=== PATIENT | female | born 2000 | race Caucasian/White ===

== ENCOUNTER 2022-05-22 10:40 | Emergency (ER) | payer OTHER ==
[~2022-05-22] VITALS: Ht 180.3 cm; Wt 108.9 kg
[~2022-05-22 10:40] MED LIST: KEFLEX500 MG PO; NAPROXEN250 MG PO; PREDNISONE20 MG PO
[2022-05-22] MEDS ORDERED: VENTOLIN HFA18 GM (11:06)
[2022-05-22] MEDS ORDERED: SERTRALINE HCL50 MG (11:06)
[2022-05-22] MEDS ORDERED: VITAMIN D-40010 MCG (11:07)
[2022-05-22] MEDS ORDERED: BUPROPION XL150 MG PO (11:09)
[2022-05-22 11:56] VITALS: BP 144/71
== END 2022-05-22 11:56 | disposition home or self-care (01) ==
LOC: ED 10:40
DX: O9A.212 Injury, poisoning and certain other consequences of external causes complicating pregnancy, second trimester (principal); S39.012A Strain of muscle, fascia and tendon of lower back, initial encounter; W01.0XXA Fall on same level from slipping, tripping and stumbling without subsequent striking against object, initial encounter; Z3A.19 19 weeks gestation of pregnancy; Z79.899 Other long term (current) drug therapy
CPT/HCPCS: 99283

== ENCOUNTER 2022-10-08 05:34 | Inpatient (IN) | payer OTHER ==
[~2022-10-08] VITALS: Ht 180.3 cm; Wt 125.2 kg
--- OUTSIDE RECORDS SUMMARY | ~2022-10-08 | XMS | Continuity of Care Document ---
Demographics + + + | Address | [address] | | | [place] [address] | + + + | Preferred Language | Unknown | + + + | Marital Status | | + + + | Mandaen Affiliation | Unknown | + + + | Race | White | + + + | Ethnic Group | Not or | + + + Author + + + | Author | [facility] | + + + | Organization | [facility] | + + + | Address | [address] | | | [place] [address] | + + + | Phone | | + + + Care Team Providers + + + + | Care Residency Program Coordinator Name | Role | Phone | + + + + Unavailable | Unavailable | + + + + Unavailable | Unavailable | + + + + Unavailable | Unavailable | + + + + Allergies and Intolerances + + + + + + | date | description | facility | reaction | severity | + + + + + + | (no date) | No Known Drug | [facility] | (no reaction) | (no severity) | | | Allergies | | | | + + + + + + | (no date) | No Known | [facility] | (no reaction) | (no severity) | | | Allergies | | | | + + + + + + Encounters No information. Functional Status No information. Immunizations No information. Medications + + + + | date | description | facility | + + + + | 2021-08-15 00:00 | NAPROXEN | [facility] | + + + + | 2016-01-11 00:00 | CEPHALEXIN | [facility] | + + + + | 2022-05-22 00:00 | Cholecalciferol (Vitamin | [facility] | | | D3) | | + + + + | 2021-10-14 00:00 | predniSONE | [facility] | + + + + | 2022-05-22 00:00 | SERTRALINE HCL | [facility] | + + + + | 2022-05-22 00:00 | ALBUTEROL SULFATE | [facility] | + + + + | 2022-05-22 00:00 | BUPROPION HCL | [facility] | + + + + Problems + + + + | date | description | facility | + + + + | 2016-01-11 00:00 | Pyelonephritis | [facility] | + + + + | 2016-01-11 00:00 | Pyelonephritis | [facility] | + + + + | 2021-07-09 10:13 | BRACHIAL PLEXUS DISORDERS | [facility] | + + + + | 2021-08-12 13:49 | BRACHIAL PLEXUS DISORDERS | [facility] | + + + + | 2021-10-14 00:00 | Urticaria | [facility] | + + + + | 2022-03-10 14:48 | ENCNTR FOR LUISN OF | [facility] | | | NORMAL FIRST PREG, FIRST | | | | TRIMESTER | | + + + + | 2022-03-10 14:48 | LESS THAN 8 WEEKS | [facility] | | | GESTATION OF | | + + + + | 2022-03-10 14:48 | 8 WEEKS GESTATION OF | [facility] | | | | | + + + + | 2022-03-17 18:50 | PAIN IN RIGHT FINGER(S) | [facility] | + + + + | 2022-05-22 00:00 | Strain of lumbar region | [facility] | + + + + | 2022-05-22 10:42 | LOW BACK PAIN, UNSPECIFIED | [facility] | | | | | + + + + | 2022-05-22 10:42 | INJ/POISN/OTH CONSEQ OF | [facility] | | | EXTRN CAUSES COMP PREG, SE | | + + + + | 2022-05-22 10:42 | STRAIN OF MUSCLE, FASCIA | [facility] | | | AND TENDON OF LOWER BACK, | | + + + + | 2022-05-22 10:42 | FALL SAME LEV FROM | [facility] | | | SLIP/TRIP W/O STRIKE | | | | AGAINST OB | | + + + + | 2022-05-22 10:42 | 19 WEEKS GESTATION OF | [facility] | | | | | + + + + | 2022-05-22 10:42 | OTHER [facility] (CURRENT) | [facility] | | | DRUG THERAPY | | + + + + | 2022-05-31 15:50 | ENCNTR FOR SUPRKIKIN OF | [facility] | | | NORMAL FIRST PREG, FIRST | | | | TRIMESTER | | + + + + | 2022-07-26 15:45 | UTERINE SIZE-DATE | [facility] | | | DISCREPANCY, UNSPECIFIED | | | | TRIMESTER | | + + + + | 2022-08-13 10:57 | PAIN IN RIGHT SHOULDER | [facility] | + + + + | 2022-08-13 10:57 | PAIN IN LEFT SHOULDER | [facility] | + + + + | 2022-08-13 10:57 | OTH RELATED | [facility] | | | CONDITIONS, UNSPECIFIED | | | | TRIM | | + + + + | 2022-08-13 10:57 | DECREASED MOVEMENTS, | [facility] | | | UNSP TRIMESTER, UNSP | | + + + + | 2022-08-13 10:57 | PELVIC AND PERINEAL PAIN | [facility] | + + + + | 2022-09-08 20:25 | UTERINE SIZE-DATE | [facility] | | | DISCREPANCY, THIRD | | | | TRIMESTER | | + + + + | 2022-09-08 20:25 | 35 WEEKS GESTATION OF | [facility] | | | | | + + + + | 2022-09-27 13:34 | ELEVATED BLOOD-PRESSURE | [facility] | | | READING, W/O DIAGNOSIS OF | | | | HTN | | + + + + Procedures No information. Results/Labs +--------+--------+ +---------+--------+---------+ | test | date | facility | value | unit | notes | +--------+--------+ +---------+--------+---------+ + + | Result panel 1 | + + + + + + + + + | | 2021-09-23 | [facility] | NEGATIVE | (missing) | (missing) | | (unavailable | 08:07 [facility] | | | | + + + + + + + Social History No information. Vital Signs + + + +---------+ | date | measurement | value | units | + + + +---------+ | 2021-10-14 00:00 | BMI | 26.5 | kg/m2 | + + + +---------+ | 2021-10-14 00:00 | BP_diastolic | 90 | mmHg | + + + +---------+ | 2021-10-14 00:00 | BP_systolic | 132 | mmHg | + + + +---------+ | 2021-10-14 00:00 | heart_rate | 85 | /min | + + + +---------+ | 2021-10-14 00:00 | height_metric | 177.8 | cm | + + + +---------+ | 2021-10-14 00:00 | height_standard | 70 | in | + + + +---------+ | 2021-10-14 00:00 | o2_saturation | 99 | % | + + + +---------+ | 2021-10-14 00:00 | respiration_rate | 16 | /min | + + + +---------+ | 2021-10-14 00:00 | temperature_metric | 36.67 | C | | | | | | + + + +---------+ | 2021-10-14 00:00 | | 98 | F | | | temperature_standar | | | | | d | | | + + + +---------+ | 2021-10-14 00:00 | weight_metric | 83.91 | kg | + + + +---------+ | 2021-10-14 00:00 | weight_standard | 184.99 | lb | + + + +---------+ | 2021-10-14 00:00 | weight_standard | 185 | lb | + + + +---------+ | 2022-05-22 00:00 | BMI | 33.5 | kg/m2 | + + + +---------+ | 2022-05-22 00:00 | BP_diastolic | 71 | mmHg | + + + +---------+ | 2022-05-22 00:00 | BP_systolic | 144 | mmHg | + + + +---------+ | 2022-05-22 00:00 | heart_rate | 68 | /min | + + + +---------+ | 2022-05-22 00:00 | height_metric | 180.34 | cm | + + + +---------+ | 2022-05-22 00:00 | height_standard | 71 | in | + + + +---------+ | 2022-05-22 00:00 | o2_saturation | 99 | % | + + + +---------+ | 2022-05-22 00:00 | respiration_rate | 17 | /min | + + + +---------+ | 2022-05-22 00:00 | temperature_metric | 36.56 | C | | | | | | + + + +---------+ | 2022-05-22 00:00 | | 97.8 | F | | | temperature_standar | | | | | d | | | + + + +---------+ | 2022-05-22 00:00 | weight_metric | 108.86 | kg | + + + +---------+ | 2022-05-22 00:00 | weight_standard | 240 | lb | + + + +---------+"
[~2022-10-08 05:34] MED LIST changes: +BUPROPION XL150 MG PO; +SERTRALINE HCL50 MG; +VENTOLIN HFA18 GM; +VITAMIN D-40010 MCG
[2022-10-08 06:13] LABS: HEMATOCRIT 34.2 % (35.0-50.0); HEMOGLOBIN 11.4 g/dL (12.0-18.0); MCH 28.7 (27-36); MCHC 33.4 g/dl (30-36); MCV 85.9 fl (81-99); RBC 3.98 M/ul (4.3-5.7); RDW 13.8 (10.5-15.0)
[2022-10-08 06:23] LABS: AMPHETAMINES, UR NEGATIVE (NEGATIVE); BARBITURATES, UR NEGATIVE (NEGATIVE); BENZODIAZEPINES, UR NEGATIVE (NEGATIVE); BUPRENORPHINE,UR NEGATIVE (NEGATIVE); COCAINE, UR NEGATIVE (NEGATIVE); MARIJUANA (THC), UR NEGATIVE (NEGATIVE); MDMA, UR NEGATIVE (NEGATIVE); METHADONE, UR NEGATIVE (NEGATIVE); METHAMPHETAMINE, UR NEGATIVE (NEGATIVE); OPIATES, UR NEGATIVE (NEGATIVE); OXYCODONE, UR NEGATIVE (NEGATIVE); PHENCYCLIDINE, UR NEGATIVE (NEGATIVE); TRICYCLIC ANTIDEPRESSANT, UR NEGATIVE (NEGATIVE)
[2022-10-08 06:36] VITALS: BP 136/69
[2022-10-08 07:40] LABS: ABO A; ANTIBODY SCREEN NEGATIVE; RH POSITIVE
[2022-10-08 16:56] VITALS: BP 109/59
[2022-10-08 16:58] LABS: HEMATOCRIT 32.3 % (35.0-50.0); HEMOGLOBIN 10.5 g/dL (12.0-18.0); MCH 28.2 (27-36); MCHC 32.4 g/dl (30-36); RBC 3.71 M/ul (4.3-5.7)
[2022-10-08 17:38] LABS: PARTIAL THROMBOPLASTIN TIME 27.6 Sec (22.9-41.3)
[2022-10-08 17:40] LABS: INR 1.04 (0.80-1.30); PROTIME 13.1 Sec (11.2-14.2)
[2022-10-09 05:13] LABS: HEMATOCRIT 26.7 % (35.0-50.0); HEMOGLOBIN 8.7 g/dL (12.0-18.0); MCH 28.3 (27-36); MCHC 32.7 g/dl (30-36); MCV 86.4 fl (81-99); RBC 3.09 M/ul (4.3-5.7); RDW 13.9 (10.5-15.0)
--- NOTE | 2022-10-10 12:02 | PR ---
[facility] [address] [place], [place] [address] Signed PP Progress Notes Datetime Report Generated by CPN: 10/10/2022 12:02 SUBJECTIVE: [id number] Pain: Within Normal Limits Nausea/Vomiting: Denies Vital Signs: [id number] Vital Signs: Reviewed; Within Normal Limits Cardiovascular: Normal Respiratory: Normal Abdomen/Uterus: Normal Extremities: Normal Progress: Normal Exam Comments: NAD RRR No dyspnea/ retractions Abd SNTND, FFBU Ext: 1+ BLLE pedal edema, neg Yessy's BL IMPRESSION/PLAN/PROCEDURES: [id number] Impression: Normal Progression Plan: Continue Present Management; Discharge Other Procedures: Iron infusion Progress Notes: 22 yo PPD#2 s/p -progressing well : ambulating, voiding, tolerating regular diet -, some difficulty maintaining latch, working with this morning -undecided re: contraception Plan: DC to home today with follow-up as outpatient with Dr. Mireles, and outpatient support as needed Signing Physician: Allie Mackenzie DO Copies: ~ *Electronically Signed* 10/10/22 1202 ALLIE MACKENZIE DO PATIENT NAME: RUBY REDDY PROGRESS NOTE DATE OF : 99 PHYSICIAN: ALLIE MACKENZIE DO RPT #: [id number] REPORT IS CONFIDENTIAL AND NOT TO BE RELEASED WITHOUT AUTHORIZATION
== END 2022-10-10 13:10 | disposition home or self-care (01) | DRG 806 ==
LOC: FBC 05:34
PROVIDERS: ADMIT Obstetrics & Gynecology; ATTEND Obstetrics & Gynecology
PROC: 10E0XZZ Delivery of Products of Conception, External Approach (ICD-10-PCS; principal; 2022-10-08)
PROC: 0KQM0ZZ Repair Perineum Muscle, Open Approach (ICD-10-PCS; 2022-10-08)
PROC: 3E0R3BZ Introduction of Anesthetic Agent into Spinal Canal, Percutaneous Approach (ICD-10-PCS; 2022-10-08)
PROC: 00HU33Z Insertion of Infusion Device into Spinal Canal, Percutaneous Approach (ICD-10-PCS; 2022-10-08)
PROC: 10907ZC Drainage of Amniotic Fluid, Therapeutic from Products of Conception, Via Natural or Artificial Opening (ICD-10-PCS; 2022-10-08)
DX: O99.344 Other mental disorders complicating childbirth (principal); O72.1 Other immediate postpartum hemorrhage; Z37.0 Single live birth; Z3A.39 39 weeks gestation of pregnancy; O70.1 Second degree perineal laceration during delivery; F41.9 Anxiety disorder, unspecified; F32.A Depression, unspecified; Z79.899 Other long term (current) drug therapy
CPT/HCPCS: 01960; 36415; 85027; 85384; 85610; 85730; 86850; 86900; 86901; A9270; J2405; J2590; J7121; Q0138